=== PATIENT | female | born 1990 | race Caucasian/White ===

== ENCOUNTER → 2019-10-13 15:05 | Outpatient (BNVA) | payer BC, SELFPAY | PROVIDERS: Family Provider Electrodiagnostic Medicine; PCP Electrodiagnostic Medicine; Visit Provider Obstetrics & Gynecology | DX: Z01.89 Encounter for other specified special examinations (principal) | CPT/HCPCS: 84315 ==

== ENCOUNTER 2019-10-20 02:05 | Outpatient (CLI) | payer BC, SELFPAY ==
[2019-10-20 02:18] VITALS: BP 121/82; PULSE 101
[2019-10-20 02:36] VITALS: TEMP 36.6
[2019-10-20 02:37] VITALS: TEMP 36.6
== END 2019-10-20 02:56 | disposition home or self-care (01) ==
LOC: OPOB 02:09 → OBGYN 02:44 → OPOB 10-21 13:31
PROVIDERS: Family Provider Electrodiagnostic Medicine; PCP Electrodiagnostic Medicine; Visit Provider Obstetrics & Gynecology
DX: O42.90 Premature rupture of membranes, unspecified as to length of time between rupture and onset of labor, unspecified weeks of gestation (principal); Z3A.00 Weeks of gestation of pregnancy not specified
CPT/HCPCS: 59025; 99211

== ENCOUNTER 2019-10-26 18:22 | Outpatient (CLI) | payer BC, SELFPAY ==
[2019-10-26 18:37] VITALS: BP 130/86; PULSE 86
[2019-10-26 20:13] VITALS: TEMP 36.7
[2019-10-26 20:14] VITALS: BMI 39.1
[2019-10-26 21:22] VITALS: BP 146/92; PULSE 80
[2019-10-26 21:36] VITALS: TEMP 36.7
== END 2019-10-26 21:36 | disposition home or self-care (01) ==
LOC: OPOB 18:30 → OBGYN 21:30 → OPOB 10-27 13:11
PROVIDERS: Family Provider Electrodiagnostic Medicine; PCP Electrodiagnostic Medicine; Visit Provider Obstetrics & Gynecology
DX: O26.899 Other specified pregnancy related conditions, unspecified trimester (principal); Z3A.00 Weeks of gestation of pregnancy not specified; R10.9 Unspecified abdominal pain
CPT/HCPCS: 59025; 99211

== ENCOUNTER 2019-10-27 10:43 | Inpatient (IN) | payer BC, MEDICAID, SELFPAY ==
[2019-10-27] VITALS (105 sets, daily range): BP systolic 0–148; BP diastolic 0–101; PULSE 64–101; RESP 16–18; TEMP 36.4–36.9; O2SAT 97–100; BMI 39.1
[2019-10-27] MEDS: dextrose 5%-lactated ringers 1,000 ML 125 ML IV (11:16)
[2019-10-27] MEDS: ampicillin 2,000 MG in sodium chloride 0.9% (plus) 50 ML 100 MG IV (11:16)
[2019-10-27 11:39] LABS: Basophils % 0.3 %; Eosinophils # 0.1 10^3/uL (0.0-0.8); Eosinophils % 0.6 %; Hematocrit 35.1 % (37.0-47.0); Hemoglobin 10.8 g/dL (11.5-15.3); Lymphocytes # 1.8 10^3/uL (0.8-4.8); Lymphocytes % 19.4 %; Mean Corpuscular HGB Conc 30.8 g/dL (30.0-36.0); Mean Corpuscular Hemoglobin 22.8 pg (28.0-34.0); Mean Corpuscular Volume 74.1 fL (81-99); Mean Platelet Volume 10.4 fL (7.4-10.4); Monocytes # 0.7 10^3/uL (0.2-0.9); Neutrophils # 6.7 10^3/uL (1.8-7.7); Neutrophils % 72.2 %; Nucleated Red Blood Cells % 0 %; Platelet Count 350 10^3/cmm (130-400); Red Blood Count 4.74 10^6/uL (4.1-5.3); Red Cell Distribution Width 15.3 % (12.1-15.1); White Blood Count 9.3 10^3/uL (4.0-10.0)
[2019-10-27] MEDS: ampicillin 1,000 MG in sodium chloride 0.9% (plus) 50 ML 100 MG IV ×2 (15:12→19:06)
[2019-10-27] MEDS: lactated ringers 1,000 ML 999 ML IV ×2 (15:48→16:58)
[2019-10-27] MEDS: fentaNYL 50 mcg/mL INJ 2mL IV ×2 (15:49→16:58)
--- NOTE | 2019-10-27 16:18 | PC.NURSE ---
Dr Landon called for epidural placement at this time.
--- NOTE | 2019-10-27 16:28 | PC.NURSE ---
Eric Rufino, CERAMICS ENGINEER called for epidural placement
[2019-10-27] MEDS: alum-mag-hydroxide-sime 30 mL UDC PO (21:52)
[2019-10-28] VITALS (56 sets, daily range): BP systolic 0–141; BP diastolic 0–93; PULSE 67–124; RESP 16–18; TEMP 36.6–37.3; O2SAT 94–99
[2019-10-28] MEDS: dextrose 5%-lactated ringers 1,000 ML 125 ML IV ×3 (00:03→18:51)
[2019-10-28] MEDS: ampicillin 1,000 MG in sodium chloride 0.9% (plus) 50 ML 100 MG IV (00:04)
--- NOTE | 2019-10-28 06:33 | P.PN_ITS ---
Subjective Subjective: Interval history: Patient is a 29-year-old white female 1, para 0 with an LMP of 01/09/2019 and an EDC of 10/26/2019 based on a 9-week ultrasound, which places her at 40-2/7 weeks gestation today. She had presented to labor and delivery in the morning of 10/27/2019 due to contractions. She had been seen in the office earlier that morning and was found to be deonna regularly and was 5 cm dilated. She made slow progress through the day but eventually progressed to complete dilation and started pushing at approximately 03: 00 on 10/28. She has now been pushing for approximately 3 hours. Patient reports being exhausted and wanting to proceed to a section. Vitals/I&O/Wt Last Vital Signs Temp 98.2 F 10/27/19 21:08 Pulse 84 10/28/19 06:19 Resp 16 10/27/19 18:09 BP 137/77 10/28/19 06:19 Pulse Ox 100 10/27/19 17:51 10/27/19 10/27/19 10/28/19 14:59 22:59 06:59 Intake Total 120.833 / 422.843 9030.667 / 2562.500 687.5 / 3250.000 Balance 120.833 / 902.290 1809.667 / 2562.500 687.5 / 3250.000 Weight last 48 hrs Weight 221 lb Physical Exam : OTHER: - External genitalia: Very edematous. No lesions seen. Anus/perineum: Hemorrhoids present. Urethral meatus: Normal in size and location with no lesions or prolapse noted Urethra: Nontender with no palpable masses noted. Bladder: Nontender with no palpable masses noted. Vagina: No masses noted. Cervix: Completely dilated. Presenting bony structure of the head is at a +1 station. It extends down further. On exam, head feels to be wedged at the pelvic inlet. Urinary Catheter Management^: Chaudhary: Cath Placed During This Visit: no Data : 10/27/19 11:00 A&P Assessment and plan (1) Cephalopelvic disproportion: Patient has now been pushing for over 3 hours and is not brought the head below a +1 station. Significant It is present. On my personal exam, the head f eels to be wedged at the pelvic inlet. Based upon this, she is not a candidate for vacuum or forceps assisted delivery. As a result, I am recommending proceeding to a section. Specific risks of were discussed with the patient and her partner including bleeding to the point of needing a blood transfusion, infection, and injury to intra-abdominal organs including bowel, bladder, blood vessels, nerves, and ureters. Questions were answered. Patient wishes to go ahead and proceed with a section. Due to reported cephalosporin allergy, she will be receiving clindamycin and gentamicin for preoperative antibiotic prophylaxis. Status: Acute Code(s): O33.9 - Maternal care for disproportion, unspecified (2) Group B Streptococcus carrier, +RV culture, currently : Patient was GBS positive. She has been on ampicillin since admission for prophylaxis. Status: Acute Code(s): O99.820 - Streptococcus B carrier state complicating Attestations Medical Necessity Statement*: Patient presented in labor and is now proceeding to a section. Coding Level of Care Code Acute Account Solutions Analyst for Chg Fwd Diagnoses Cephalopelvic disproportion O33.9 Group B Streptococcus carrier, +RV culture, currently O99.820
[2019-10-28] MEDS: metoclopramide 5 mg/mL SDV 2 mL 10 MG IV (06:55)
[2019-10-28] MEDS: citric acid-sodium citrate 30 mL UDC PO (06:55)
[2019-10-28] MEDS: famotidine 20 mg/2 mL INJ IVP (06:55)
--- NOTE | 2019-10-28 07:04 | ANES.PREANES ---
Pre-Anesthetic Assessment Pre-Anesthetic Assessment: Height/Weight: Height 1.6 m Weight 100.244 kg Temp Pulse Resp BP Pulse Ox 98.2 F 98 16 133/77 100 10/27/19 21:08 10/28/19 07:01 10/27/19 18:09 10/28/19 07:01 10/27/19 17:51 Preop Diagnosis: failure to progress Proposed Procedure: Familial anesthetic complications: mom hard to wake up Social: Social History: No alcohol and No tobacco Exam: Pre-Anes Outpt Exam: alert, oriented x 3, clear to auscultation bilaterally and regular rate & rhythm Airway: Submandibular: WNL Cervical ROM: WNL MP: 2 Dentition: Full History/ROS: Other Pulmonary: Pulmonary: Asthma and SABA CV/HEM: CV/HEM: None reported : : None reported Hepatic: Hepatic: None reported GI: GI: GERD (controlled) Musc/skel: Musc/skel: None reported Neuropsych: Neuropsych: DAHL Anesthetic Plan: ASA status: III Anesthesia: Regional (specify below) Risk of > 500 ml blood loss (7ml/kg in children): Yes, adequate IV access and fluids planned Meds/Allergies Current Medications: Current Medications Generic Name Dose Route Start Last Admin Trade Name Freq PRN Reason Stop Dose Admin Al Hydrox/Mg [place] x/Simethicone 30 ml 10/27/19 10:48 10/27/19 21:52 Maalox PO 30 ml Q4H PRN Administration INDIGESTION Fentanyl 25 - 100 mcg 10/27/19 15:30 10/27/19 16:58 Sublimaze IV 50 mcg Q1H PRN Administration SEVERE PAIN Lactated Ringer's 1,000 mls @ 999 m ls/hr 10/27/19 10:48 10/27/19 18:00 Lactated Ringers IV Infused .Q1H1M PRN Infusion BLEEDING Ampicillin Sodium 2,000 mg/ 50 mls @ 100 mls/ hr 10/27/19 11:00 10/27/19 11:50 Sodium Chloride IV Infused ONCE WANDA Infusion Protocol Ampicillin Sodium 1,000 mg/ 50 mls @ 100 mls/ hr 10/27/19 15:00 10/28/19 00:04 Sodium Chloride IV 100 mls/hr Q4H WANDA Administration Protocol Dextrose/Lactated Ringer's 1,000 mls @ 125 m ls/hr 10/27/19 11:00 10/28/19 00:03 Dextrose 5%-Lact ated Ringers IV 125 mls/hr .Q8H WANDA Administration Ropivacaine 200 mg in 100 mls @ 13 mls/hr 10/27/19 11:00 10/28/19 01:45 Naropin Premix EPIDURAL 13 mls/hr .Q7H42M WANDA Administration PFSH Anesthesia PFSH: Social History Smoking and tobacco status: former smoker Quit status (tobacco): has quit using tobacco Second hand smoke exposure: No Smoking risk assessment/counseling performed?: No Alcohol intake: never Desire information about alcohol rehabilitation?: No Counseling given: No Desire information about substance/drug rehabilitation?: No Counseling given: No Last substance use date: 06/11/19 Adopted: No Caregiver/support person: No Lives independently: Yes Household members: spouse and family Housing: Apartment Marital status: Number of children: 0 Highest education level completed: High School Graduate service: No Current occupational status: employed 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 [employer] Current occupational exposures/hazards: No Pets and animals: No History of recent travel: No Leisure activites: exercise Current gender identity: Female Elsa/Anabaptist: None Special elsa needs: No Agree to transfusion: Yes Financial difficulty paying for basics: Not Very Hard Female Reproductive History: Date of last menstrual period: 01/09/19 : 1 Para: 0 Spontaneous abortions: No Data Anesthesia CBC & Chem 7: 10/27/19 11:00 Other Labs: Laboratory Results - last 48 hr 10/27/19 11:00 WBC 9.3 RBC 4.74 Hgb 10.8 L Hct 35.1 L MCV 74.1 L MCH 22.8 L MCHC 30.8 RDW 15.3 H Plt Count 350 MPV 10.4 Neut % (Auto) 72.2 Lymph % (Auto) 19.4 Bailey % (Auto) 7.0 Eos % (Auto) 0.6 Baso % (Auto) 0.3 Neut # (Auto) 6.7 Lymph # (Auto) 1.8 Bailey # (Auto) 0.7 Eos # (Auto) 0.1 Baso # (Auto) 0.0 Nucleated RBC % (auto) 0 Nucleated RBCs # 0.0 Cardiac Studies: No Data to Display
[2019-10-28] MEDS: methylergonovine 0.2 mg/mL INJ 1 mL IM (07:44)
--- NOTE | 2019-10-28 08:43 | ANE.PACU ---
 Inpatient post-anesthesia follow up: Airway intact: Yes Vital signs: Temperature 99.0 F Pulse Rate 98 Respiratory Rate 16 Blood Pressure 133/77 Pulse Oximetry 100 Oxygen Delivery Me thod Room Air Oxygen Flow Rate Fraction of Inspir ed Oxygen Hydration adequate: Yes Nausea and vomiting: No Pain level: 2 Mental status: Baseline
--- NOTE | 2019-10-28 08:53 | PM.OP ---
Operative Report Date of procedure: 10/28/19 Pre-op Diagnosis: Cephalopelvic disproportion, Arrest of descent, at 40-2/7 weeks gestation, GBS positive carrier status Post-op Diagnosis: 1. Cephalopelvic disproportion with contracted inlet, 2. Arrest of descent, 3. at 40-2/7 weeks gestation, 4. Group B strep positive carrier status in - delivered, 5. Viable female Procedure Done: Primary low transverse section Pathology: none sent Surgeon: Abdon Cobian Anesthesia: Epidural Brief History: Patient is a 29-year-old white female 1, para 0 with an LMP of 01/09/2019 and an EDC of 10/26/2019 based on a 9-week ultrasound, which placed her at 40-2/7 weeks gestation today. She had presented to labor and delivery and the morning of 10/27/2019 with contractions. She made slow change during the day and became uncomfortable enough that she had epidural placed. She eventually progressed to complete dilation and started pushing shortly after 3:00 in the morning. She pushed over 3 hours and never brought the baby below a +1 station. The head felt to be wedged tightly at the pelvic inlet and decision was made to proceed to a primary section. Patient had been on ampicillin for group B strep prophylaxis during the labor course due to positive GBS status. Procedure: Patient was taken to the operating room where epidural anesthesia was further dosed. She was given prophylactic dosing of clindamycin and gentamicin due to being cephalosporin allergic. She was prepped and draped in the usual sterile fashion in a dorsal supine position with a leftward tilt. Chaudhary catheter and sequential compression boots had been placed prior to starting the case. A Pfannenstiel skin incision was made with a knife and carried down to the underlying fascia with the knife. Fascia was incised in the midline with the knife and extended laterally with Simmons scissors. Superior aspect of the fascia was grasped with Shen clamps, elevated, and sharply and bluntly dissected. The inferior aspect of the fascia was grasped with Shen clamps, elevated, and sharply and bluntly dissected. The rectus muscles were in the midline. Peritoneum was sharply entered. Peritoneal incision was extended both superiorly and inferiorly with good visualization of the bladder. Bladder blade was inserted. The vesicouterine peritoneum was tented up and sharply entered. It was extended laterally and the bladder flap was created digitally. Bladder blade was reinserted. A transverse incision was made with the knife in the lower uterine segment. Clear fluid was obtained upon entry into the uterine cavity. The infant's head was wedged tightly at the pelvic inlet. With difficulty, the head was brought up out of the pelvis and delivered. One loop of loose nuchal cord was noted and reduced. The rest of the infant delivered atraumatically. Nose and mouth were suctioned with bulb suction. Cord was clamped and cut and the infant was handed off to the waiting nurses. Cord blood was obtained. Placenta was delivered via uterine massage. Patient received 20 units of Pitocin in the IV fluids. The uterus was exteriorized and cleared of clots and debris. She had bilateral inferior extensions from the corners of the uterine incision. The uterus was closed using 0 Vicryl suture in a running locking fashion. Care was taken not to incorporate bladder or ureters in the repair. During the closure, she continued to have significant enough bleeding from the uterus that she was given 1 dose of Methergine 0.2 mg IM. By the time the uterus was completely closed, uterus was deonna well and bleeding had slowed. The incision was imbricated using 0 Vicryl suture in a horizontal mattress fashion. The incision was inspected and noted to be hemostatic. Posterior cul-de-sac was thoroughly irrigated and cleared of clots and blood. The uterus was returned to the abdomen. The uterine incision was irrigated and noted to be hemostatic. The gutters were cleared of clots and blood. The rectus muscles and peritoneum were reapproximated in the midline using interrupted stitches of 2-0 Vicryl suture. The muscle layer was irrigated and noted to be hemostatic. The fascia was reapproximated using 0 Vicryl suture in a running fashion. The subcutaneous layer was irrigated and brought to hemostasis using electrocautery. It was reapproximated using 3-0 plain suture in an interrupted fashion. Skin was reapproximated using 4-0 Vicryl suture in a subcuticular fashion. Steri-Strips were applied. Patient tolerated the procedures well. Sponge, needle, and instrument counts were correct. ESTIMATED BLOOD LOSS: 1000 mL INTRAVENOUS FLUIDS: 1200 mL crystalloid DRAINS: Chaudhary catheter SPECIMENS: None COMPLICATIONS: None FINDINGS: 1. Viable, female infant, cephalic presentation, weighing 8 pounds 5 ounces (3780 g) with a length of 20-1/4 inches and Apgars of 8 at 1 minute and 8 at 5 minutes. 2. Normal appearing uterus, tubes, and ovaries. 3. Contracted pelvic inlet with head wedged tightly at the pelvic inlet. POSTOPERATIVE STATUS: The patient was left to recover in satisfactory condition
[2019-10-28] MEDS: sodium chloride 0.9% 500 ML 999 ML IV (14:20)
[2019-10-28] MEDS: ketorolac 30 mg/mL INJ IVP ×2 (14:21→20:25)
--- NOTE | 2019-10-28 15:29 | PC.NURSE ---
Eric Joy CRNA removed epidural catheter at this time.
[2019-10-28] MEDS: sodium chloride 0.9% 1,000 ML 999 ML IV (16:50)
[2019-10-28] MEDS: lanolin oint 7 gm 1 APPLIC TOPICAL (16:53)
[2019-10-28] MEDS: docusate sodium 100 mg Capsule PO (18:47)
[2019-10-28] MEDS: ferrous sulfate EC 325 mg Tablet PO (18:47)
[2019-10-28 23:10] LABS: Hematocrit 25.2 % (37.0-47.0); Hemoglobin 7.7 g/dL (11.5-15.3); Mean Corpuscular HGB Conc 30.6 g/dL (30.0-36.0); Mean Corpuscular Hemoglobin 23.1 pg (28.0-34.0); Mean Corpuscular Volume 75.7 fL (81-99); Mean Platelet Volume 10.4 fL (7.4-10.4); Platelet Count 232 10^3/cmm (130-400); Red Blood Count 3.33 10^6/uL (4.1-5.3); Red Cell Distribution Width 15.8 % (12.1-15.1)
[2019-10-29] MEDS: acetaminophen 325 mg Tablet 650 MG PO ×2 (00:20→18:47)
[2019-10-29 02:41] VITALS: BP 104/67; PULSE 71; RESP 16
[2019-10-29 03:00] VITALS: BP 104/67; PULSE 71; RESP 16; TEMP 36.7
[2019-10-29] MEDS: prenatal vitamin Capsule 1 CAP PO (10:06)
[2019-10-29] MEDS: ferrous sulfate EC 325 mg Tablet PO ×2 (10:06→18:44)
[2019-10-29] MEDS: docusate sodium 100 mg Capsule PO ×2 (10:06→18:44)
[2019-10-29 10:11] VITALS: BP 107/69; PULSE 96; RESP 16; TEMP 36.8; O2SAT 99
--- NOTE | 2019-10-29 13:45 | PM.PN ---
Subjective Subjective: Interval history: Denies any new problems or concerns. States pain is been well controlled with the Duramorph previously. Has taken Tylenol and ibuprofen now. Denies lightheadedness or dizziness with ambulation. Denies shortness of breath or chest pains. Reports tolerating a regular diet without nausea or vomiting. Denies problems with urination. Reports passing flatus. Reports bleeding has slowed. She is breast-feeding. Vitals/I&O/Wt Last Vital Signs Temp 98.2 F 10/29/19 10:11 Pulse 96 10/29/19 10:11 Resp 16 10/29/19 10:11 BP 107/69 10/29/19 10:11 Pulse Ox 99 10/29/19 10:11 10/28/19 10/29/19 10/29/19 22:59 06:59 14:59 Intake Total 1358.333 / 3220.333 500 / 3720.333 Output Total 940 / 2270 2100 / 4370 600 / 600 Balance 418.333 / 950.333 -1600 / -649.667 -600 / -600 Physical Exam Const: COMMON NORMALS: no apparent distress, average body habitus, alert and well nourished GENERAL APPEARANCE: well developed ORIENTATION/CONSCIOUSNESS: Yes oriented to person, Yes oriented to place and Yes oriented to time Resp: COMMON NORMALS: normal respiratory effort and clear to auscultation bilaterally AUSCULTATION: clear to auscultation bilaterally Cardio: COMMON NORMALS: regular rate, regular rhythm, no gallops, no murmurs and no rub RATE: regular rate RHYTHM: regular rhythm GI: COMMON NORMALS: soft to palpation, no hepatosplenomegaly and no masses (Except for firm uterus approximately 2 fingerbreadths below the umbilicus.) INSPECTION: Yes incision (Clean, dry, and intact with Steri-Strips present.) AUSCULTATION: Yes normoactive bowel sounds PALPATION: Yes soft, Yes tender (Mild in the lower abdomen.), Yes no hepatosplenomegaly and No hernia : EXTERNAL FEMALE EXAM: No hernia Extremity: OTHER: No calf pain bilaterally. 2+ lower extremity edema. Neuro: SENSORIUM/ORIENTATION: Yes alert, Yes oriented to person, Yes oriented to place and Yes oriented to time Psych: COMMON NORMALS: affect normal MOOD & AFFECT: Yes euthymic mood Urinary Catheter Management^: Chaudhary: Cath Placed During This Visit: no Data : 10/28/19 22:35 A&P Assessment and plan (1) Cephalopelvic disproportion: Postoperative day 1, status post primary section Patient is doing well overall. Her pain has been well controlled with Duramorph up to this point. Discussed with her the use of oral pain medications as needed as the Duramorph continues to wear off. Patient currently tolerating a regular diet after having diet advanced this morning. She initially had low urine output following surgery but responded well to fluid boluses and now has adequate urine production. Increase activities as tolerated. Status: Acute Qualifiers: Cephalopelvic disproportion type: inlet contraction of pelvis Qualified Code(s): O33.2 - Maternal care for disproportion due to inlet contraction of pelvis Code(s): O33.9 - Maternal care for disproportion, unspecified (2) Acute blood loss anemia: Patient is anemic with an H&H of 7.7/25.2. This is an acute drop from admission H&H of 10.8 and 35.1. Based upon blood loss at delivery this is an expected drop. She is currently asymptomatic. Plan is to have her take iron at home after discharge. Status: Acute Code(s): D62 - Acute posthemorrhagic anemia (3) Anemia during , delivered, current hospitalization: Patient was noted to have microcytic anemia on admission. She will be on iron after discharge from the hospital. Status: Acute Code(s): O99.02 - Anemia complicating childbirth Attestations Medical Necessity Statement*: Patient is day 1 following unscheduled section. She will be kept in the hospital until tomorrow with plan for discharge tomorrow. Coding Level of Care Code Acute Microfilming Document Preparer for [facility] Fwd Diagnoses Cephalopelvic disproportion O33.2 Cephalopelvic disproportion type: inlet contraction of pelvis Acute blood loss anemia D62 Anemia during , delivered, current hospitalization O99.02
[2019-10-29 16:00] VITALS: BP 116/79; PULSE 95; RESP 16; TEMP 36.8; O2SAT 98
[2019-10-29] MEDS: HYDROcodone-acetaminophen 5-325 mg Tablet PO (16:24)
[2019-10-29 22:00] VITALS: BP 112/72; PULSE 75; RESP 18; TEMP 36.5; O2SAT 97
[2019-10-30 04:35] VITALS: BP 123/86; PULSE 67; RESP 15; TEMP 36.6; O2SAT 100
[2019-10-30] MEDS: HYDROcodone-acetaminophen 5-325 mg Tablet PO (05:00)
--- NOTE | 2019-10-30 08:03 | P.DS_ITS ---
Discharge Providers Date of Admission: 10/27/19 10:43 Date of Discharge: 10/30/19 Attending Provider at Admission: Abdon Cobian Attending Provider at Discharge: Abdon Cobian Primary Care Provider: Markos Garcia DO Diagnoses at Discharge Discharge Diagnosis (1) Cephalopelvic disproportion: Status: Acute Qualifiers: Cephalopelvic disproportion type: inlet contraction of pelvis Qualified Code(s): O33.2 - Maternal care for disproportion due to inlet contraction of pelvis (2) Acute blood loss anemia: Status: Acute (3) Anemia during , delivered, current hospitalization: Status: Acute Reason for Visit Reason for Visit: Reason For Visit: LABOR Hospital Course Hospital Course: Patient is a 29-year-old white female 1, para 0 with an LMP of 01/09/2019 and an EDC of 10/26/2019 based on a 9-week ultrasound, which placed her at 40-1/7 weeks gestation at the time of admission. She presented to labor and delivery in the morning of 10/27/2019 with complaint of contractions. She had made slow change during the day and became more uncomfortable to the point that she had an epidural placed. She eventually progressed to complete dilation and started pushing shortly after 3 AM. She pushed for over 3 hours and never brought the baby below a +1 station. The head was felt to be wedged tightly at the pelvic inlet and decision was made to proceed to a primary section. She had a primary low transverse section performed with the delivery of a viable female infant weighing 8 lbs 5 oz (3780 g) with a length of 20-1/4 inches and Apgars of 8 at 1 minute and 8 at 5 minutes. The infant's head was noted to be wedged tightly at the pelvic inlet and she was felt to have a small pelvic inlet consistent with cephalopelvic disproportion. She received Duramorph through her epidural for pain management following section. On post operative day 1, patient was doing well overall. Her pain is been well controlled with Duramorph. She denied any lightheadedness or dizziness with ambulation. She denied any shortness of breath or chest pains. She was tolerating a regular diet without nausea or vomiting. She was urinating without difficulty. Her bleeding had decreased. She was afebrile with stable vital signs. Activities were increased through the day. She was also switched to oral pain medications. Patient had post operative anemia, but had been also anemic prior to admission. Since she was asymptomatic, no treatment was needed. She was to be started on iron tablets after discharge. On postoperative day 2, she was continuing to do well. She was tolerating a regular diet without nausea or vomiting. She denied any shortness of breath or chest pains. She was ambulating without lightheadedness or dizziness. She stated that her pain is been well controlled on oral medications. She denied any problems with urination. She was breast-feeding. She was requesting to be discharged home. PHYSICAL EXAM: See the exam below. PLAN Discharge to home. Discharge instructions discussed with patient. Patient was to follow-up in the office in 2 and 6 weeks following discharge. Physical Exam Const: COMMON NORMALS: no apparent distress, average body habitus, alert and well nourished GENERAL APPEARANCE: well developed ORIENTATION/CONSCIOUSNESS: Yes oriented to person, Yes oriented to place and Yes oriented to time Resp: COMMON NORMALS: normal respiratory effort and clear to auscultation bilaterally AUSCULTATION: clear to auscultation bilaterally Cardio: COMMON NORMALS: regular rate, regular rhythm, no gallops, no murmurs and no rub RATE: regular rate RHYTHM: regular rhythm GI: COMMON NORMALS: soft to palpation, no hepatosplenomegaly and no masses (Except for firm uterus, approximately 2 finger-breaths below umbilicus.) INSPECTION: Yes incision (clean, dry, intact with steri-strips present.) AUSCULTATION: Yes normoactive bowel sounds PALPATION: Yes soft, Yes tender (Mild tenderness of lower abdomen), Yes no hepatosplenomegaly and No hernia : EXTERNAL FEMALE EXAM: No hernia Neuro: SENSORIUM/ORIENTATION: Yes alert, Yes oriented to person, Yes oriented to place and Yes oriented to time Psych: COMMON NORMALS: affect normal MOOD & AFFECT: Yes euthymic mood Discharge Data Data Completed and [place]10/27/2019: CBC: WBC 9.3, hemoglobin 10.8, hematocrit 35.1, MCV 74.1, platelet 350,000 10/28/2019: CBC: WBC 13.0, hemoglobin 7.7, hematocrit 25.2, MCV 75.7, platelet 232,000 Vitals: Last Vital Signs Temp 97.8 F 10/30/19 04:35 Pulse 67 10/30/19 04:35 Resp 15 10/30/19 04:35 BP 123/86 10/30/19 04:35 Pulse Ox 100 10/30/19 04:35 Discharge Plan Discharge Patient Disposition: Home, Self-Care Condition: Stable Prescriptions: New ferrous sulfate 325 mg (65 mg iron) tablet 325 mg PO BID Qty: 60 RF: 1 ibuprofen 800 mg Tablet 800 mg PO TID Qty: 40 RF: 1 hydrocodone-acetaminophen 5-325 mg Tablet 1 - 2 tab PO Q6H PRN (Reason: Moderate To Severe Pain) Qty: 20 RF: 0 Continued docusate sodium 100 mg capsule 100 mg PO BID RF: 0 acetaminophen [Tylenol Extra Strength] 500 mg tablet 500 mg PO Q4H PRN (Reason: Abdominal Discomfort) RF: 0 famotidine [Pepcid] 20 mg tablet 20 mg PO ONCE RF: 0 prenat.vits,acacia,wze-gkgo-[id number] Tablet 1 tab PO ONCE RF: 0 Discharge Orders: Discharge Order (Routine); Ordered 10/30/19 Ordered By: Abdon Cobian Referrals: Abdon Cobian MD [Physician] - 11/13/19 10:45 am (2 weeks for post-op appointment 6 weeks for check-up- Is on 12.11.19 at 10:30am) Discharge Diet: Regular Discharge Activity: Limit activity as instructed Patient Instructions: , Section (DC), Your Baby (DC), and the Working Mom (DC), Expression, Collection and Storage of Breastmilk (DC), How to Hold and Breastfeed Your Baby (DC), and Plugged Ducts (DC), How to Increase Your Milk Supply (DC), How to Tell if Your Baby is Getting Enough Breast Milk (DC), Breast Care for the Breast Feeding Mother (GEN), Bleeding (DC), OB WHC, OB Discharge Report, OB Food/Drug Interaction Guide, OB Proud Parent Packet, Depression Activity Restrictions/Additional Instructions: Provide my section discharge instructions Discharge Date/Time: 10/30/19 13:20 Discharge Attestations Time Spent in Discharge Care*: less than 30 min Quality Metrics Clinical Quality Measures During this hospital stay, did patient experience: None Coding Level of Care Code Acute Oyster Fisherman for Chg Fwd Exam Problem Focused Diagnoses Cephalopelvic disproportion O33.2 Cephalopelvic disproportion type: inlet contraction of pelvis Acute blood loss anemia D62 Anemia during , delivered, current hospitalization O99.02
[2019-10-30] MEDS: prenatal vitamin Capsule 1 CAP PO (08:29)
[2019-10-30] MEDS: ferrous sulfate EC 325 mg Tablet PO (08:29)
[2019-10-30] MEDS: docusate sodium 100 mg Capsule PO (08:30)
[2019-10-30 10:00] VITALS: BP 121/71; PULSE 93; RESP 16; TEMP 36.4; O2SAT 98
[2019-10-30] MEDS: acetaminophen 325 mg Tablet 650 MG PO (11:31)
[2019-10-30 13:20] VITALS: BP 129/80; PULSE 77; RESP 16; TEMP 36.3; O2SAT 100
== END 2019-10-30 13:20 | disposition home or self-care (01) | DRG 787 ==
PROVIDERS: Admitting Provider Obstetrics & Gynecology; Family Provider Electrodiagnostic Medicine; PCP Electrodiagnostic Medicine; Visit Provider Obstetrics & Gynecology
PROC: 10D00Z1 Extraction of Products of Conception, Low, Open Approach (ICD-10-PCS; CPT 59514; principal; 2019-10-28 07:00)
DX: O65.8 Obstructed labor due to other maternal pelvic abnormalities (principal); D62 Acute posthemorrhagic anemia; Z3A.40 40 weeks gestation of pregnancy; Z37.0 Single live birth; O62.1 Secondary uterine inertia; O99.824 Streptococcus B carrier state complicating childbirth; O69.81X0 Labor and delivery complicated by cord around neck, without compression, not applicable or unspecified; O99.02 Anemia complicating childbirth
CPT/HCPCS: 12345; 36415; 51702; 59409; 81003; 85025; 85027; 86850; 86900; 96372; 96374; 96375; J0290; J1885; J2001; J2210; J2274; J2590; J2765; J2795; J3010; J3490; J7030; J7040

== ENCOUNTER 2022-01-14 05:00 | Inpatient (IN) | payer OTHER, MEDICAID, SELFPAY ==
[2022-01-14] VITALS (47 sets, daily range): BP systolic 93–116; BP diastolic 57–84; PULSE 50–134; RESP 14–46; TEMP 34.4–36.7; O2SAT 94–100; BMI 36.3
[2022-01-14] MEDS: lactated ringers 1,000 ML 999 ML IV (05:51)
[2022-01-14 05:55] LABS: Basophils # 0.1 10^3/uL (0.0-0.1); Basophils % 0.6 %; Eosinophils # 0.1 10^3/uL (0.0-0.8); Eosinophils % 0.7 %; Hematocrit 36.7 % (37.0-47.0); Hemoglobin 11.2 g/dL (11.5-15.3); Lymphocytes # 2.9 10^3/uL (0.8-4.8); Lymphocytes % 32.2 %; Mean Corpuscular HGB Conc 30.5 g/dL (30.0-36.0); Mean Corpuscular Volume 72.1 fl (81-99); Mean Platelet Volume 10.3 fL (7.4-10.4); Monocytes # 0.5 10^3/uL (0.2-0.9); Neutrophils # 5.47 10^3/uL (1.8-7.7); Neutrophils % 60.2 %; Nucleated Red Blood Cells % 0 %; Platelet Count 309 10^3/cmm (130-400); Red Blood Count 5.09 10^6/uL (4.1-5.3); Red Cell Distribution Width 15.9 % (12.1-15.1); White Blood Count 9.1 10^3/uL (4.0-10.0)
[2022-01-14 06:04] LABS: Amphetamines Screen Urine Negative (Negative); Barbiturates Screen Urine Negative (Negative); Benzodiazepines Screen Urine Negative (Negative); Cocaine Screen Urine Negative (Negative); Opiate Screen Urine Negative (Negative); PCP Screen Urine Negative (Negative); THC Screen Urine Positive (Negative)
[2022-01-14] MEDS: citric acid-sodium citrate 30 mL UDC PO (06:53)
[2022-01-14] MEDS: famotidine 20 mg/2 mL INJ IVP (06:53)
--- NOTE | 2022-01-14 06:53 | P.ANESUD_ITS ---
Pre-Anesthetic Update Pre-Anesthetic Assessment: Date of Surgery/Procedure: 01/14/22 Preop Trish gnosis: failure to progress Proposed Procedure: Operation Date: 01/14/22 07:00 Proposed Procedures p Section Repeat(Not Applicable) - Edward Peterson MD Any changes to Pre-Anesthetic Assessment?: No Last Intake: Intake Last Liquid Date 01/13/22 Last Liquid Time 19:00 Last Solid Date 01/13/22 Last Solid Time 19:00 Last Intake: 19:00 Labs Last 48hrs: Short CBC 01/14/22 Range/Units 05:30 WBC 9.1 (4.0-10.0) 10^3/ uL Hgb 11.2 L (11.5-15.3) g/dL Hct 36.7 L (37.0-47.0) % MCV 72.1 L (81-99) fl Plt Count 309 (130-400) 10^3/c mm Neut % (Auto) 60.2 % Neut # (Auto) 5.47 (1.8-7.7) 10^3/u L Vitals: Temperature 96.3 F L 01/14/22 05:42 Pulse Rate 74 01/14/22 06:50 Pulse Rhythm 01/14/22 05:53 Pulse Strength 3+ Normal 01/14/22 05:53 Respiratory Rate 16 01/14/22 05:21 Respiratory Effort Non-Labored 01/14/22 05:53 Respiratory Depth Normal 01/14/22 05:53 Respiratory Patter n 01/14/22 05:53 Blood Pressure 107/80 01/14/22 06:46 Pulse Oximetry 100 01/14/22 06:50 Oxygen Delivery Me thod 01/14/22 05:53 Exam: Pre-Anes Outpt Exam: alert, oriented x 3, clear to auscultation bilaterally and regular rate & rhythm Cardiac Studies: No Data to Display
[2022-01-14] MEDS: metoclopramide 5 mg/mL SDV 2 mL 10 MG IVP (06:54)
[2022-01-14] MEDS: lactated ringers 1,000 ML 125 ML IV (06:54)
--- NOTE | 2022-01-14 06:55 | PM.OBGYHP ---
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 The patient has had a relatively unremarkable . We have discussed the pros and cons of a versus a since he first trimester of the . The patient has made it clear that she would like to have a repeat section. Present Details : 2 Para: 1 Date of Last Menstrual Period: 01/09/19 Calculated Date of Delivery: 10/16/19 Gestational Age Based on Last Menstrual Period: 157 Labs Rubella: Immune RPR: Negative GBS: Positive Other Lab Information: Her blood type is O- she has been THC positive during her . She has been honest about her marijuana use. We have discussed concerns related to marijuana use. She has been in effort to minimize her marijuana use. She failed her 1 hour glucose screen. Otherwise her labs have been within normal limits. Review of Systems General: Reports: 10 or more systems reviewed and unremarkable except in HPI and below Const: Reports: fatigue; Denies: fever(s) Eyes: Denies: change in vision Card: Denies: chest pain Musc: Reports: back pain Enmanuel/Lymph: Denies: easy bruising Medications/Allergies Home Medications Medication Instructions Recorded Confirmed Last Taken Type famotidine 20 mg tablet 20 mg PO BID PRN 01/14/22 01/14/22 01/13/22 17:30 History ondansetron HCl 4 mg tablet 4 mg PO Q6H PRN 01/14/22 01/14/22 01/13/22 17:30 History Allergies Allergy/AdvReac Type Severity Reaction Status Date / Time hydrocodone Allergy Hives Verified 10/22/20 10:27 sulfamethoxazole Allergy ALGY-Hives Verified 01/14/22 05:36 [From Bactrim] trimethoprim [From Bactrim] Allergy ALGY-Hives Verified 01/14/22 05:36 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 No pertinent past medical history Denies diabetes, asthma, hypertension, seizures, DVT/PE PCP: Dr. Garcia Surgical History (Updated 01/14/22 @ 07:02 by Edward Peterson MD) History of section, low transverse (10/28/19) Primarly LTCS. Diagnosis: Cephalopelvic disproportion with contracted inlet, Arrest of descent. Performed by Dr. Cobian at [facility]. Status post hemorrhoidectomy 10/07/2019--deroofing and evacuation of thrombosed clots of external hemorrhoid performed by Dr. 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 Other Female Reproductive History: Hx Age of Menarche: 10 History History History 1 Term 1 Miscarriages/Ectopic 0 0 Living Children 1 Vitals/I&O/Wt Last Vital Signs Temp 96.3 F L 01/14/22 05:42 Pulse 74 01/14/22 06:50 Resp 16 01/14/22 05:21 BP 107/80 01/14/22 06:46 Pulse Ox 100 01/14/22 06:50 Weight last 48 hrs Weight 205 lb Physical Exam Const: COMMON NORMALS: patient oriented x3 and alert HENMT: COMMON NORMALS: moist oral mucous membranes HEAD & SCALP: normal to inspection Chest: COMMONS NORMALS: normal inspection of the chest Resp: COMMON NORMALS: clear to auscultation bilaterally AUSCULTATION: clear to auscultation bilaterally Cardio: COMMON NORMALS: regular rate and regular rhythm RATE: regular rate RHYTHM: regular rhythm GI: INSPECTION: Yes normal to inspection and Yes other (Gravid) Extremity: COMMON NORMALS: normal to inspection GENERAL: Yes edema (Trace) Neuro: COMMON NORMALS: patient oriented x3, moves all extremities and no sensory deficits noted SENSORIUM/ORIENTATION: Yes alert Psych: COMMON NORMALS: mental status grossly normal Skin: COMMON NORMALS: no rashes or lesions noted GENERAL SKIN EXAM: no rashes or lesions noted Data : 01/14/22 05:30 A&P Assessment and plan (1) 39 weeks gestation of : Proceed with low transverse section I discussed the risks of the procedure with the patient including the risk of bleeding, infection, and damage to intra-abdominal organs. We have also discussed the risks of a tubal including the risk of a ectopic , and a 1 and 200 chance of becoming again after a successful tubal ligation. Status: Acute (2) Sterilization: Status: Acute Attestations Medical Necessity Statement*: Routine and post care. Coding Level of Care Code Acute Content Publisher for Chg Fwd Diagnoses 39 weeks gestation of Z3A.39 Sterilization Z30.2
--- NOTE | 2022-01-14 08:21 | P.OP_ITS ---
Operative Report Date of procedure: January 14, 2022 Pre-op diagnosis: 1. 31-year-old female at 39 weeks estimated gestational age 2. History of 3. Multigravida desiring sterilization Post-op diagnosis: Same Procedure done: 1. Repeat lower transverse section with an intraoperative bilateral tubal ligation Specimens removed/disposition: 1. Male infant with a weight of 9 pounds 1 ounces and Apgars of 8 and 9 2. Bilateral fallopian tube segment with the right segment being tagged Pathology: Bilateral fallopian tube segments with the right segment being tagged. Surgeon: Edward Peterson Anesthesia: Other (Spinal) Estimated blood loss: 300 Procedure: The patient was brought back to the operating room where she was prepped and draped in usual sterile fashion. Anesthesia was found to be adequate. A lower transverse skin incision was then made with a #10 blade. I then dissected down to the underlying subcutaneous tissue until arriving at the prerectal fascia. The fascia was then nicked with the scalpel bilaterally. The fascial incisions were then carried laterally with Simmons scissors. Attention was then turned to the superior aspect of the incision which was grasped with kochers and tented up away from the underlying rectus abdominis muscles. The muscles were then dissected away from the fascia manually, and later with Simmons scissors. Attention was then turned to the inferior aspect of the incision, and the fascia was dissected away from the underlying muscle in similar fashion. The rectus abdominis muscles were then spread manually. The peritoneum was entered manually. Excellent visualization of the uterus was noted. A lower transverse uterine incision was then made with a #10 blade. Upon arriving at the intrauterine cavity, the uterine incision was then extended manually. The was noted to be in vertex position. I attempt to deliver baby without assistance. Despite several attempts, the baby's head did not deliver easily. I placed a Kiwi vacuum, and deliver the baby's head without difficulty. Total time of application was less than 20 seconds. After delivery of the head, the mouth and nose were suctioned at the site of the incision. There was no meconium. There was no nuchal cord. There was a body cord x1 the remainder of the body was then delivered and placed on the abdomen. The cord was cut and clamped. The baby was then handed to the waiting nurse. The placenta was removed intact. The uterus was externalized. The intrauterine cavity was cleansed of any remaining debris. The uterine incision was reapproximated in 2 layers. The first layer was performed with 0 Vicryl in a running locked stitch. The second layer was an imbricating stitch also using 0 Vicryl. The right fallopian tube was identified and followed through to the fimbria. It was then ligated cut and cauterized in a modified [place] fashion with 0 Vicryl. The left fallopian tube was also identified and ligated cut and cauterized in similar fashion. The uterus was replaced into the abdomen. The peritoneum was then irrigated with warm saline. I reexamined the uterine incision and found it to be hemostatic. The rectus abdominis muscles were then reapproximated using 0 Vicryl in a running stitch. The fascia was then reapproximated using 0 Vicryl in running stitch. The skin was reapproximated using ivelisse. A sterile dressing was placed. All counts were correct x2. Both the mother and baby were in stable condition.
[2022-01-14] MEDS: docusate sodium 100 mg Capsule PO ×2 (11:36→18:31)
[2022-01-14] MEDS: dextrose 5%-lactated ringers 1,000 ML 125 ML IV (11:37)
--- NOTE | 2022-01-14 13:34 | ANE.PACU2 ---
Inpatient post-anesthesia follow up: Airway intact: Yes Vital signs: Temperature 97.9 F Pulse Rate 56 Respiratory Rate 17 Blood Pressure 112/84 Pulse Oximetry 98 Oxygen Delivery Me thod Room Air Oxygen Flow Rate Fraction of Inspir ed Oxygen Hydration adequate: Yes Nausea and vomiting: No Pain level: 2 Mental status: Baseline
[2022-01-14] MEDS: ketorolac 30 mg/mL INJ IVP ×2 (15:54→21:57)
--- NOTE | 2022-01-14 16:48 | PC.NURSE ---
Patient has been up to the chair for over 2 hours watching TV and then went for a walk in the [place]. She made two laps in the hallway and tolerated it well. She is now back in her room sitting up in bed.
[2022-01-14] MEDS: ferrous sulfate EC 325 mg Tablet PO (18:31)
[2022-01-14 20:31] LABS: Hematocrit 29.9 % (37.0-47.0); Hemoglobin 9.1 g/dL (11.5-15.3); Mean Corpuscular HGB Conc 30.4 g/dL (30.0-36.0); Mean Corpuscular Hemoglobin 22.4 pg (28.0-34.0); Mean Corpuscular Volume 73.6 fl (81-99); Mean Platelet Volume 10.1 fL (7.4-10.4); Platelet Count 228 10^3/cmm (130-400); Red Blood Count 4.06 10^6/uL (4.1-5.3); White Blood Count 9.1 10^3/uL (4.0-10.0)
[2022-01-15] MEDS: alum-mag-hydroxide-sime 30 mL UDC PO (02:42)
[2022-01-15] MEDS: ketorolac 30 mg/mL INJ IVP (03:50)
[2022-01-15 03:55] VITALS: BP 103/67; PULSE 75; RESP 14; O2SAT 98
--- NOTE | 2022-01-15 07:37 | P.DS_ITS ---
Discharge Providers SENIOR SUPPORT ENGINEER Date of Admission: 01/14/22 05:00 Date of Discharge: 01/15/22 Attending Provider at Admission: Edward Peterson MD Attending Provider at Discharge: Edward Peterson MD Primary Care Provider: Markos Garcia DO Diagnoses at Discharge Discharge Diagnosis (1) 39 weeks gestation of : Status: Acute (2) Sterilization: Status: Acute Reason for Visit Reason for Visit: Repeat , desires sterilization Hospital Course Hospital Course The patient presented to the hospital for a repeat section and bilateral tubal ligation. The procedure was unremarkable. Her postoperative course was also unremarkable. Her bleeding was minimal. Her pain was well controlled. She breast-fed well. She was passing flatus on the day of surgery. Her diet was advanced and she has tolerated it well. She is required no pain medication. There have been no concerns. Information Peripartum Data: Infant Delivery Method: Physical Exam Narrative: She is in no acute distress Lungs are clear auscultation bilaterally Her heart has a regular rate and rhythm Her fundus is below the umbilicus and firm Her dressing is clean, dry and intact Her extremities have trace edema Urinary Catheter Management: Chaudhary: Cath Placed During This Visit: yes, but has since been removed by the nurse Reason for Continuing Indwelling Catheter: Decision to DC Catheter Urinary Catheter Date of Insertion: 01/14/22 Urinary Catheter Time of Insertion: 07:18 Date Urinary Catheter Removed: 01/14/22 Time Urinary Catheter Discontinued: 21:40 History History History 1 Term 1 Miscarriages/Ectopic 0 0 Living Children 1 Discharge Data Studies Completed and Pending Pending at discharge Category Date Time Status Complete Crossmatch Routine Lab 01/14/22 05:30 Results Rho D Immune Globulin Routine Lab 01/14/22 05:30 Results Type and Screen Routine Lab 01/14/22 05:30 Results Pathology: Surgical [PTH] Routine Pth 01/14/22 10:09 Received Laboratory Results WBC 9.1 10^3/uL (4.0-10.0) 01/14/22 20:20 RBC 4.06 10^6/uL (4.1-5.3) L 01/14/22 20:20 Hgb 9.1 g/dL (11.5-15.3) L 01/14/22 20:20 Hct 29.9 % (37.0-47.0) L 01/14/22 20:20 MCV 73.6 fl (81-99) L 01/14/22 20:20 MCH 22.4 pg (28.0-34.0) L 01/14/22 20:20 MCHC 30.4 g/dL (30.0-36.0) 01/14/22 20:20 RDW 16.0 % (12.1-15.1) H 01/14/22 20:20 Plt Count 228 10^3/cmm (130-400) 01/14/22 20:20 MPV 10.1 fL (7.4-10.4) 01/14/22 20:20 Neut % (Auto) 60.2 % 01/14/22 05:30 Lymph % (Auto) 32.2 % 01/14/22 05:30 Williams % (Auto) 6.0 % 01/14/22 05:30 Eos % (Auto) 0.7 % 01/14/22 05:30 Baso % (Auto) 0.6 % 01/14/22 05:30 Neut # (Auto) 5.47 10^3/uL (1.8-7.7) 01/14/22 05:30 Lymph # (Auto) 2.9 10^3/uL (0.8-4.8) 01/14/22 05:30 Williams # (Auto) 0.5 10^3/uL (0.2-0.9) 01/14/22 05:30 Eos # (Auto) 0.1 10^3/uL (0.0-0.8) 01/14/22 05:30 Baso # (Auto) 0.1 10^3/uL (0.0-0.1) 01/14/22 05:30 Nucleated RBC % (auto) 0 % 01/14/22 05:30 Nucleated RBCs # 0.0 /100WBC 01/14/22 05:30 Urine Opiates Screen Negative ng/mL (Negative) 01/14/22 05:30 Ur Barbiturates Screen Negative ng/mL (Negative) 01/14/22 05:30 Ur Phencyclidine Scrn Negative ng/mL (Negative) 01/14/22 05:30 Ur Amphetamines Screen Negative ng/mL (Negative) 01/14/22 05:30 U Benzodiazepines Scrn Negative ng/mL (Negative) 01/14/22 05:30 Urine Cocaine Screen Negative ng/mL (Negative) 01/14/22 05:30 U Marijuana (THC) Screen Positive ng/mL (Negative) H 01/14/22 05:30 Blood Type O Negative 01/14/22 05:30 Rho(D) Type Negative 01/14/22 05:30 Antibody Screen Negative 01/14/22 05:30 Screen Negative (Negative) 01/14/22 20:20 Vitals Last Vital Signs Temp 98.1 F 01/14/22 18:12 Pulse 75 01/15/22 03:55 Resp 14 01/15/22 03:55 BP 103/67 01/15/22 03:55 Pulse Ox 98 01/15/22 03:55 Discharge Plan Discharge Patient Disposition: Home Condition: Stable Prescriptions: New ibuprofen 800 mg Tablet 800 mg PO TID Qty: 45 0RF docusate sodium 100 mg Capsule 100 mg PO BID 7 Days Qty: 14 0RF Percocet 5-325 mg tablet 1 tab PO Q8H PRN (Reason: pain) Qty: 20 0RF Discontinued ondansetron HCl 4 mg tablet 4 mg PO Q6H PRN (Reason: Nausea) 0RF famotidine 20 mg tablet 20 mg PO BID PRN (Reason: Nausea) 0RF Discharge Orders: Discharge Order (Routine); Ordered 01/15/22 Ordered By: Edward Peterson Referrals: Edward Peterson MD [Physician] - 4-7 days (Please set up exam in 6 weeks) Discharge Diet: Usual diet Discharge Activity: Limit activity as instructed Patient Instructions: Depression (DC), Bleeding (DC), Preeclampsia and Eclampsia After Delivery (GEN), Tubal Ligation (DC), OB C- Section - Nicholas/Sierra, OB Discharge Report, OB Food/Drug Interaction Guide, Opioid Safety, OB Home Care Discharge Attestations SENIOR SUPPORT ENGINEER Time Spent in Discharge Care*: less than 30 min Coding Level of Care Code Acute Train Operator for Chg Fwd Diagnoses 39 weeks gestation of Z3A.39 Sterilization Z30.2
[2022-01-15 09:48] VITALS: RESP 18
[2022-01-15] MEDS: oxyCODONE-APAP 5-325 mg Tablet 1 TAB PO (09:48)
[2022-01-15 10:14] VITALS: BP 106/71; PULSE 90; RESP 18; TEMP 36.6; O2SAT 100
[2022-01-15 12:04] VITALS: BP 106/71; PULSE 90; RESP 18; TEMP 36.6; O2SAT 100
== END 2022-01-15 12:10 | disposition home or self-care (01) | DRG 785 ==
PROVIDERS: Admitting Provider Family Medicine; PCP Electrodiagnostic Medicine; Visit Provider Family Medicine
PROC: 10D00Z1 Extraction of Products of Conception, Low, Open Approach (ICD-10-PCS; CPT 59514; principal; 2022-01-14 07:00)
DX: O34.211 Maternal care for low transverse scar from previous cesarean delivery (principal); N85.8 Other specified noninflammatory disorders of uterus; O99.820 Streptococcus B carrier state complicating pregnancy; O99.320 Drug use complicating pregnancy, unspecified trimester; F12.90 Cannabis use, unspecified, uncomplicated; Z3A.39 39 weeks gestation of pregnancy; Z37.0 Single live birth; Z30.2 Encounter for sterilization
CPT/HCPCS: 12345; 36415; 36430; 51702; 59025; 80306; 85025; 85027; 85460; 86850; 86900; 88302; 90384; J0690; J1885; J2274; J2405; J2765; J3490

== ENCOUNTER → 2023-03-30 14:37 | Outpatient (BNVA) | payer OTHER, MEDICAID, SELFPAY | PROVIDERS: PCP Electrodiagnostic Medicine; Visit Provider Nurse Practitioner Family | DX: Z01.89 Encounter for other specified special examinations (principal) | CPT/HCPCS: 73110 ==

== ENCOUNTER 2023-10-26 19:19 | Emergency (ER) | payer OTHER, MEDICAID, SELFPAY ==
[2023-10-26 19:23] VITALS: BP 121/85; PULSE 73; RESP 16; TEMP 36.5; O2SAT 99
--- NOTE | 2023-10-26 19:26 | XRR_ITS ---
PROCEDURE INFORMATION: Exam: XR Right Hand Exam date and time: 10/26/2023 7:48 PM Age: 33 years old Clinical indication: Injury or trauma; Other: Dog bite; Hand; Right TECHNIQUE: Imaging protocol: Radiologic exam of the right hand. Views: 3 or more views. COMPARISON: No relevant prior studies available. FINDINGS: Bones/joints: Normal. No acute fractures or dislocations. Soft tissues: No radiopaque foreign bodies. XR/XR hand RT min 3V* [id number] IMPRESSION: Normal.
--- NOTE | 2023-10-26 20:34 | ED_ITS ---
HPI - Animal Bite 2 General: Chief Complaint: Animal Bite Stated Complaint: Rt Hand Injury Time Seen by Provider: 10/26/23 19:30 Source: patient Mode of arrival: ambulatory Limitations: no limitations History of Present Illness: Patient presents emergency department today for evaluation treatment of injury sustained to her right wrist. Patient states that she has a great Jesse/retriever mixed 6-month-old puppy at home. She states that it got one of his toes caught in the middle back door frame and began crying out. Patient states when she went to go try and calm/steady the dog, the dog bit her on her right wrist. The dog is an inside dog but has not been immunized yet. Patient's last tetanus immunization was 2 years ago. Review of Systems 2 General: Reports: 10 or more systems reviewed and unremarkable except in HPI and below PFSH ED 2 PFSH: Medical History No pertinent past medical history Denies diabetes, asthma, hypertension, seizures, DVT/PE PCP: Dr. Garcia Migraine headache without aura Has used propranolol in the past but did not like the way it made her feel. Surgical History Status post hemorrhoidectomy 10/07/2019--deroofing and evacuation of thrombosed clots of external hemorrhoid performed by Dr. Gillis at [facility] when patient was about 35 weeks History of section, low transverse (10/28/19) Primarly LTCS. Diagnosis: Cephalopelvic disproportion with contracted inlet, Arrest of descent. Performed by Dr. Cobian at [facility]. 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 Do you think of yourself as: Straight/Heterosexual Female Reproductive History: Para: 0 Spontaneous abortions: No Physical Exam 2 Const: COMMON NORMALS: no acute distress, patient oriented x3 and alert HENMT: COMMON NORMALS: normocephalic, atraumatic and hearing grossly normal bilaterally HEAD & SCALP: normocephalic and atraumatic Eye: COMMON NORMALS: Equal, round and reactive pupils present, EOMs intact bilaterally and conjunctivae normal CONJUNCTIVA: Yes conjunctivae normal P UPIL: Yes Equal, round and reactive pupils present Neck/C-Spine: COMMON NORMALS: full ROM and no JVD Lymph: LYMPHATIC: no lymphadenopathy noted Resp: COMMON NORMALS: normal respiratory effort, No retractions and No use of accessory muscles Cardio: COMMON NORMALS: no JVD and regular rate RATE: regular rate Extremity: NARRATIVE EXTREMITY EXAM: Patient has generalized swelling of the right wrist. She has 4 obvious puncture denson around her wrist without active bleeding. No signs of lacerations or abrasions. EXTREMITY IMAGE (FRONT): 1. 4 punctures-1. posterior medial distal wrist puncture 2. posterior medial proximal wrist puncture 3. anterior lateral distal wrist puncture 4. anterior lateral proximal wrist puncture Neuro: COMMON NORMALS: patient oriented x3 SENSORIUM/ORIENTATION: Yes alert Psych: COMMON NORMALS: mental status grossly normal, Normal thought process present, cooperative and normal affect THOUGHT PROCESS: Normal thought process present Skin: COMMON NORMALS: no rashes or lesions noted and turgor normal GENERAL SKIN EXAM: no rashes or lesions noted and turgor normal Course 2 Vital Signs: Vital signs: Vital Signs Temperature 97.7 F 10/26/23 19:23 Pulse Rate 73 10/26/23 19:23 Respiratory Rate 16 10/26/23 19:23 Blood Pressure 121/85 10/26/23 19:23 Pulse Oximetry 99 10/26/23 19:23 Oxygen Delivery Me thod Room Air 10/26/23 19:23 MDM - Animal Bite Medical Decision Making X-rays negative for any signs of underlying bony injury however, patient does have obvious puncture denson around her wrist with diffuse swelling. Patient is tender and sore. Wonder if she may be more tender and sore over the next couple of days. Patient's wounds were cleaned here in the emergency department and a first round of Augmentin was provided. Patient was given a prescription to continue Augmentin starting in the morning and was instructed to take in its entirety. She was given wound care instructions for twice a day wound cleaning and bandaging. Patient has an updated tetanus immunization per her report. She is to continue monitoring the dog for the next 2 weeks for any concerning signs of rabies the likelihood is extremely low. Patient should have a wound check if needed for any concerns of worsening swelling, redness, or draining of thick green or yellow material consistent with developed section. Patient verbalizes understanding and agreement to treatment plan. Differential Diagnosis Likely bite by animal and dog bite; Unlikely cat bite or rabies contact Lab Data Radiology Impressions Hand X-Ray 10/26/23 19:26 IMPRESSION: Normal. All radiology interpretation(s) finalized by discharge Discharge Plan Discharge Patient Disposition: Home Clinical Impression: Puncture wound of right wrist, Dog bite Condition: Stable Prescriptions: New amoxicillin-pot clavulanate 875-125 mg tablet 1 tab PO BID 10 Days Qty: 20 0RF Discharge Orders: Discharge ED (Routine); Ordered 10/26/23 Ordered By: Cassia Chavarria Referrals: Markos Garcia DO [Primary Care Provider] - Discharge Diet: Usual diet Discharge Activity: Increase activity as tolerated Patient Instructions: Animal Bite (ED), Puncture Wound (DC), Rabies (ED) Activity Restrictions/Additional Instructions: X-ray shows no signs of any bony injury however, you may be extremely tender, sore, swollen, and bruised for several days. We recommend washing your wounds twice a day with warm water and mild soap. We recommend keeping it bandaged and wrapped with an Darius wrap for comfort and cleanliness during this time. We are providing you an antibiotic called Augmentin which helps cover for the specific bacteria found in the mouths of dogs. However, if you feel the area becomes more red, swollen, or begins draining a thick yellow or green material from the wound you need to be seen and reevaluated. While the likelihood of your puppy having rabies is extremely low, we do recommend monitoring the animal over the next 2 weeks. I have included an informational handout about rabies for you to use as reference at home. If you have any concerns you need to notify your loan servicing officer or animal control and you should return here to the ER. Coding Level of Care Code ED Supervisor [employer] for Mat Guzman
[2023-10-26] MEDS: amoxicillin-clav 875-125 mg Tablet 1 TAB PO (20:51)
--- NOTE | 2023-10-26 20:55 | PC.NURSE ---
wound cleaned with betadine and sterile water. Gauze used to wipe the site. Darius wrap applied to wrist per provider.
[2023-10-26 20:58] VITALS: PULSE 87; RESP 16
== END 2023-10-26 20:58 | disposition home or self-care (01) ==
PROVIDERS: Emergency Provider Physician Assistant; PCP Electrodiagnostic Medicine
DX: S61.551A Open bite of right wrist, initial encounter (principal); W54.0XXA Bitten by dog, initial encounter; Z87.891 Personal history of nicotine dependence
CPT/HCPCS: 73130; 99283

== ENCOUNTER 2024-12-12 06:51 | Emergency (ER) | payer OTHER, SELFPAY ==
[2024-12-12] VITALS (10 sets, daily range): BP systolic 104–117; BP diastolic 69–77; PULSE 70–88; RESP 18–20; TEMP 36.7; O2SAT 74–100
[2024-12-12 07:43] LABS: Basophils % 0.6 %; Eosinophils # 0.1 10^3/uL (0.0-0.8); Eosinophils % 1.5 %; Hematocrit 45.4 % (36-47); Lymphocytes # 1.4 10^3/uL (0.8-4.8); Lymphocytes % 18.6 %; Mean Corpuscular HGB Conc 31.9 g/dL (30-55); Mean Corpuscular Hemoglobin 25.3 pg (27-33); Mean Corpuscular Volume 79.2 fl (85-98); Mean Platelet Volume 10.6 fL (7.4-10.4); Monocytes # 0.4 10^3/uL (0.2-0.9); Monocytes % 5.5 %; Neutrophils # 5.36 10^3/uL (1.8-7.7); Neutrophils % 73.7 %; Nucleated Red Blood Cells % 0 %; Platelet Count 288 10^3/cmm (157-399); Red Blood Count 5.73 10^6/uL (3.85-5.65); Red Cell Distribution Width 14.4 % (12.1-15.1); White Blood Count 7.27 10^3/uL (3.29-11.43)
[2024-12-12 07:52] LABS: HCG, Serum Qual Negative (Negative)
[2024-12-12 08:00] LABS: Alanine Aminotransferase 15 U/L (0-33); Albumin Level 4.3 g/dL (3.5-5.2); Alkaline Phosphatase 94 U/L (35-105); Anion Gap 12.7 (5-19); Aspartate Amino Transferase 18 U/L (0-32); Blood Urea Nitrogen 10 mg/dL (6-20); Calcium 9.6 mg/dL (8.5-10.5); Carbon Dioxide 22 mmol/L (22-29); Chloride 106 mmol/L (98-107); Creatinine Clr Calc Pharmacy 117.2009; Globulin 2.4 g/dL (1.3-4.6); Glomerular Filtration Rate 94.7 mL/min (90-130); Glucose 95 mg/dL (65-115); Lipase 22 U/L (13-60); Osmolality Calculated 283 mOsm/kg (285-295); Potassium 3.7 mmol/L (3.5-5.1); Sodium 137 mmol/L (136-145); Total Bilirubin 0.5 mg/dL (0.15-1.2); Total Protein 6.7 g/dL (6.6-8.7)
--- NOTE | 2024-12-12 08:26 | W.ED.ABDPA2 ---
HPI - Abdominal Pain General: Chief Complaint: Abdominal Pain Stated Complaint: abd pain Time Seen by Provider: 12/12/24 06:56 History of Present Illness: 34-year-old female presents emergency room complaining of right upper quadrant abdominal pain. Worsens takes a deep breath. Severe pain with palpation. She has noticed less intense episodes in the past when she eats beef. She denies any acholic stools she has been very nauseous. No dysuria urgency or frequency she is currently having her period. Patient does use marijuana regularly she uses edibles every day as well as vaping. She has not had any vomiting with this. Associated Symptoms: Reports nausea; Denies chills, dysuria and fever(s) Related Data Home Medications ?Medication ?Instructions ?Recorded ?Confirmed Marijuana Gummies 15 mg PO DAILY 12/12/24 12/12/24 multivitamin 1 tab PO QAM 12/12/24 12/12/24 naproxen sodium 220 mg tablet 220 mg PO BID PRN Pain 12/12/24 12/12/24 (Aleve) Previous Rx's ?Medication ?Instructions ?Recorded amoxicillin 500 mg-potassium 1 tab PO TID #21 tabs 12/12/24 clavulanate 125 mg tablet (Augmentin) hydrocodone 5 mg-acetaminophen 325 1 tab PO Q6H PRN pain #25 tabs 12/12/24 mg tablet promethazine 25 mg tablet 25 mg PO Q6H PRN nausea and 12/12/24 vomiting #20 tabs Allergies Allergy/AdvReac Type Severity Reaction Status Date / Time hydrocodone Allergy Hives Verified 09/08/24 09:40 sulfamethoxazole (From Allergy ALGY-Hives Verified 09/08/24 09:40 Bactrim) trimethoprim (From Bactrim) Allergy ALGY-Hives Verified 09/08/24 09:40 Review of Systems Const: Denies: fever(s) or chills Card: Denies: chest pain Resp: Denies: dyspnea GI: Reports: abdominal pain (Right upper quadrant) and nausea : Denies: dysuria, urinary frequency or urinary urgency Musc: Denies: neck pain or back pain Skin/Breast: Denies: rash PFSH ED PFSH: Medical History No pertinent past medical history Denies diabetes, asthma, hypertension, seizures, DVT/PE PCP: Dr. Garcia Migraine headache without aura Has used propranolol in the past but did not like the way it made her feel. Surgical History Status post hemorrhoidectomy 10/07/2019--deroofing and evacuation of thrombosed clots of external hemorrhoid [place] Gillis [place] [facility] [place] patient was about 35 weeks History of section, low transverse (10/28/19) [facility]. Diagnosis: Cephalopelvic disproportion with contracted inlet, Arrest of descent. Performed by Dr. Cobian at [facility] [place]. Family History Grandmother Diabetes Maternal Breast cancer Paternal, diagnosed in her 70s Mother Diabetes Hyperlipidemia Hypertension Anesthesia complication Family/Other Breast cancer Paternal great aunt, diagnosed in her 70s Denies family history of Colon cancer Ovarian cancer Heart disease Uterine cancer Thyroid disease Stroke Social History (Updated 12/12/24 @ 08:34 by Prince Benson DO) Smoking and tobacco/nicotine status: unknown if used tobacco/nicotine Quit status (tobacco/nicotine): has quit using Alcohol intake: never Substance/Drug Use: current Substance/Drug use frequency: daily Other substance/drug use details: Multiple doses of edibles and vaping daily 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 Do you think of yourself as: Straight/Heterosexual Female Reproductive History: Para: 0 Spontaneous abortions: No Physical Exam Const: COMMON NORMALS: no acute distress GENERAL APPEARANCE: cooperative and comfortable ORIENTATION/CONSCIOUSNESS: Yes awake, Yes oriented to person, Yes oriented to place and Yes oriented to time HENMT: COMMON NORMALS: normocephalic, atraumatic and hearing grossly normal bilaterally HEAD & SCALP: normocephalic and atraumatic Resp: COMMON NORMALS: normal respiratory effort, No retractions, No use of accessory muscles and clear to auscultation bilaterally AUSCULTATION: clear to auscultation bilaterally Cardio: COMMON NORMALS: regular rate, regular rhythm and No murmurs present (Cardio) RATE: regular rate RHYTHM: regular rhythm GI: COMMON NORMALS: No hepatosplenomegaly present AUSCULTATION: Yes normoactive bowel sounds PALPATION: Yes Tenderness to palpation present (GI) Details: RUQ, No Guarding due to palpation present (GI) and Yes No hepatosplenomegaly present Extremity: COMMON NORMALS: normal to inspection, capillary refill normal, no clubbing, cyanosis or edema, no calf tenderness and no pedal edema Neuro: SENSORIUM/ORIENTATION: Yes oriented to person, Yes oriented to place and Yes oriented to time Skin: COMMON NORMALS: no rashes or lesions noted GENERAL SKIN EXAM: no rashes or lesions noted Course Vital Signs: Vital signs: Vital Signs Temperature 98.1 F 12/12/24 06:58 Pulse Rate 88 12/12/24 11:55 Respiratory Rate 18 12/12/24 09:23 Blood Pressure 104/76 12/12/24 11:55 Pulse Oximetry 100 12/12/24 11:55 MDM - Abdominal Pain Medical Decision Making Cholelithiasis without evidence of acute cholecystitis patient does have biliary colic suspect at some point she will need to have her gallbladder out. Reviewed dietary restrictions that are likely to aggravate this. Will get her set up with surgery as an outpatient. Return if she has worsening symptoms Lab Data 12/12/24 07:27 12/12/24 07:27 Labs/Radiology: Radiology Impressions Abdomen/Pelvis CT 12/12/24 08:35 IMPRESSION: 1. Cholelithiasis without evidence for acute cholecystitis or biliary dilatation. Numerous stones are present in the gallbladder. 2. No renal obstruction or perinephric stranding. 3. Normal appendix. 4. Moderate fecal retention in the RIGHT colon. Gallbladder Ultrasound 12/12/24 08:35 IMPRESSION: 1. Cholelithiasis. Numerous stones within the gallbladder. Stones are present within the neck of the gallbladder. These could be entrapped. Recommend surgical evaluation for cholecystectomy. 2. No pericholecystic fluid. 3. Normal common bile duct. Laboratory Results WBC 7.27 10^3/uL (3.29-11.43) 12/12/24 07:27 RBC 5.73 10^6/uL (3.85-5.65) H 12/12/24 07:27 Hgb 14.50 g/dL (11.27-16.99) 12/12/24 07:27 Hct 45.4 % (36-47) 12/12/24 07:27 MCV 79.2 fl (85-98) L 12/12/24 07: MCH 25.3 pg (27-33) L 12/12/24 07: MCHC 31.9 g/dL (30-55) 12/12/24 07: RDW 14.4 % (12.1-15.1) 12/12/24 07:27 Plt Count 288 10^3/cmm (157-399) 12/12/24 07: MPV 10.6 fL (7.4-10.4) H 12/12/24 07:27 Neut % (Auto) 73.7 % 12/12/24 07:27 Lymph % (Auto) 18.6 % 12/12/24 07:27 [place] % (Auto) 5.5 % 12/12/24 07: Eos % (Auto) 1.5 % 12/12/24 07:27 Baso % (Auto) 0.6 % 12/12/24 07:27 Neut # (Auto) 5.36 10^3/uL (1.8-7.7) 12/12/24 07:27 Lymph # (Auto) 1.4 10^3/uL (0.8-4.8) 12/12/24 07:27 [place] # (Auto) 0.4 10^3/uL (0.2-0.9) 12/12/24 07:27 Eos # (Auto) 0.1 10^3/uL (0.0-0.8) 12/12/24 07:27 Baso # (Auto) 0.0 10^3/uL (0.0-0.1) 12/12/24 07:27 Nucleated RBC % (auto) 0 % 12/12/24 07: Nucleated RBCs # 0.0 /100WBC 12/12/24 07:27 Sodium 137 mmol/L (136-145) 12/12/24 07:27 Potassium 3.7 mmol/L (3.5-5.1) 12/12/24 07:27 Chloride 106 mmol/L (98-107) 12/12/24 07:27 Carbon Dioxide 22 mmol/L (22-29) 12/12/24 07:27 Anion Gap 12.7 (5-19) 12/12/24 07:27 BUN 10 mg/dL (6-20) 12/12/24 07: Creatinine 0.7 mg/dL (0.5-0.9) 12/12/24 07: GFR Calculation 94.7 mL/min (90-130) 12/12/24 07: Glucose 95 mg/dL (65-115) 12/12/24 07:27 Calculated Osmolality 283 mOsm/kg (285-295) L 12/12/24 07: Calcium 9.6 mg/dL (8.5-10.5) 12/12/24 07: Total Bilirubin 0.5 mg/dL (0.15-1.2) 12/12/24 07: AST 18 U/L (0-32) 12/12/24 07: ALT 15 U/L (0-33) 12/12/24 07: Alkaline Phosphatase 94 U/L (35-105) 12/12/24 07:27 Total Protein 6.7 g/dL (6.6-8.7) 12/12/24 07: Albumin 4.3 g/dL (3.5-5.2) 12/12/24 07: Globulin 2.4 g/dL (1.3-4.6) 12/12/24 07: Lipase 22 U/L (13-60) 12/12/24 07: HCG, Qual Negative (Negative) 12/12/24 07: Urine Color Yellow (Yellow) 12/12/24 09:25 Urine Appearance Clear (CLEAR) 12/12/24 09: Urine pH 8.0 (5-7) A 12/12/24 09:25 Ur Specific [place] 1.008 (1.005-1.030) 12/12/24 09:25 Urine Protein Negative (Negative) 12/12/24 09:25 Urine Glucose (UA) Negative (Normal) 12/12/24 09: Urine Ketones Negative (Negative) 12/12/24 09: Urine Blood 2+ (Negative) A 12/12/24 09: Urine Nitrate Negative (Negative) 12/12/24 09:25 Urine Bilirubin Negative (Negative) 12/12/24 09:25 Urine Urobilinogen 0.2 mg/dL (Negative) 12/12/24 09:25 Ur Leukocyte Esterase Negative (Negative) 12/12/24 09:25 Urine RBC 0-4 /hpf (0-2) H 12/12/24 09:25 Urine WBC 0-4 /hpf (0-5) H 12/12/24 09:25 Ur Squamous Epith Cells 5-10 /hpf (0-5) H 12/12/24 09:25 Ur Transition Epith Cell 0-4 /hpf 12/12/24 09:25 Amorphous Sediment Not Reportable 12/12/24 09:25 Urine Bacteria None /hpf (NONE) 12/12/24 09:25 Other Casts Epithelial /lpf 12/12/24 09:25 All radiology interpretation(s) finalized by discharge Discharge Plan Discharge Patient Disposition: Home Clinical Impression: Cholelithiasis, Biliary colic Condition: Stable Prescriptions: New promethazine 25 mg tablet 25 mg PO Q6H PRN (Reason: nausea and vomiting) Qty: 20 0RF amoxicillin-pot clavulanate [Augmentin] 500-125 mg tablet 1 tab PO TID Qty: 21 0RF hydrocodone-acetaminophen 5-325 mg tablet 1 tab PO Q6H PRN (Reason: pain) Qty: 25 0RF No Action multivitamin Tablet 1 tab PO QAM naproxen sodium [Aleve] 220 mg Tablet 220 mg PO BID PRN (Reason: Pain) Marijuana Gummies 15 mg PO DAILY Discharge Orders: Discharge ED (Routine); Ordered 12/12/24 Ordered By: Prince Benson Discharge Diet: As Directed Discharge Activity: Increase activity as tolerated Patient Instructions: Biliary Colic (ED), Gallstones (ED), Abdominal Pain (ED), Opioid Safety, Pain Management Activity Restrictions/Additional Instructions: Thank you for choosing [facility] for your healthcare needs today. It is very important that you follow up as instructed or that you return to the Emergency Department should you have concerns or if your condition changes or worsens in any way. You were seen in the emergency room with right upper quadrant abdominal pain. You have cholelithiasis (gallstones) but does not get acutely infected. At this time you do not need your gallbladder emergently removed however it will need to be removed at some point in future. Recommend they be very careful with what to eat fatty foods red meats dairy products citrus foods tomato-based products can all aggravate the gallbladder you should avoid these very strictly. We have given you pain medications and antinausea medicines to use as needed. Additionally we will make arrangements for you to follow-up with one of the general surgeons. You can use hydrocodone for pain. Recommend you take either cetirizine or diphenhydramine to limit side effects of skin itching. Print Language: Guyanese Coding Level of Care Code ED Senior Resident Care Director for Mat Guzman
--- NOTE | 2024-12-12 08:35 | US_ITS ---
WS: [id number] RIGHT UPPER QUADRANT ULTRASOUND HISTORY: biliary colic COMPARISON: None available. Liver: 16.1 cm in length. Normal size liver and echogenicity. No bile duct dilatation or mass. Portal Vein: Normal hepatopetal flow with monophasic waveform. Gallbladder: Normally distended gallbladder. Numerous stones are present within the gallbladder. No pericholecystic fluid. Stones are noted within the neck of the gallbladder. CBD: 0.4 cm Pancreas: Limited visualization. Right kidney: 11.3 cm in length. Normal size and echogenicity. No hydronephrosis or mass. Aorta and IVC: Unremarkable abdominal aorta and IVC. No ascites. US/US gall bladder [id number] IMPRESSION: 1. Cholelithiasis. Numerous stones within the gallbladder. Stones are present within the neck of the gallbladder. These could be entrapped. Recommend surgica l evaluation for cholecystectomy. 2. No pericholecystic fluid. 3. Normal common bile duct.
--- NOTE | 2024-12-12 08:35 | CT_ITS ---
WS: [id number] CT ABDOMEN AND PELVIS NONCONTRAST HISTORY: flank pain, right-sided back and flank pain. TECHNIQUE: Imaging performed through the abdomen and pelvis. Coronal and sagittal reformats are submitted. All CT scans at [facility] use at least one of these dose optimization techniques: automated exposure control; mA and/or kV adjustment per patient size (includes targeted exams where dose is matched to clinical indication); or iterative reconstruction. DLP: 587.82 mGy.cm COMPARISON: None available. Lower thorax: Lung bases are clear. Visualized heart is normal. No hiatal hernia. Liver: Normal size liver. No mass or bile duct dilatation. Gallbladder: Gallbladder is well distended. Numerous stones are present within the gallbladder. No pericholecystic fluid or gallbladder wall thickening. Common bile duct is normal size. Pancreas: Normal size and attenuation. Normal pancreatic duct. No pancreatitis or mass. Spleen: Normal. Adrenal glands: Normal. No mass. Right kidney: Normal size kidney. No significant perinephric stranding. Small extrarenal pelvis. Ureter tapers quickly and there is no distal ureteral calcification or stone. Left kidney: Slightly lobulated LEFT kidney. Kidney is slightly smaller than the RIGHT. No perinephric stranding. Nonobstructing 2 mm calcification in the upper pole. Small extrarenal pelvis. No ureteral dilatation or obstruction. Aorta: Mild atherosclerosis abdominal aorta with no aneurysm. No free fluid, intraperitoneal air or significant lymphadenopathy. GI tract: Normal stomach. No small bowel obstruction. Moderate fecal material in the RIGHT colon. The appendix is normal. No colitis or obstruction. Abdominal wall: Negative. No hernia. Pelvis: Urinary bladder is overly distended. No free fluid in the pelvis. Uterus is midline and there is a menstruation cup present. No adnexal mass. Osseous structures: Unremarkable. CT/CT kidney stone [id number] IMPRESSION: 1. Cholelithiasis without evidence for acute cholecystitis or biliary dilatati on. Numerous stones are present in the gallbladder. 2. No renal obstruction or perinephric stranding. 3. Normal appendix. 4. Moderate fecal retention in the RIGHT colon.
[2024-12-12] MEDS: morphine 4 mg/mL SDV 1 mL IVP (09:23)
[2024-12-12] MEDS: ondansetron 2 mg/ML SDV 2 mL 4 MG IVP (09:23)
[2024-12-12 09:36] LABS: Bilirubin Urine Negative (Negative); Blood Urine 2+ (Negative); Glucose Urine UA Negative (Normal); Ketones Urine Negative (Negative); Leukocyte Esterase Urine Negative (Negative); Nitrate Urine Negative (Negative); Protein Urine Negative (Negative); Specific Gravity, Urine 1.008 (1.005-1.030); Urine Appearance Clear (CLEAR); Urine Color Yellow (Yellow); Urobilinogen Urine 0.2 mg/dL (Negative)
[2024-12-12 09:39] LABS: UA Manual Slide Review YES
[2024-12-12 09:50] LABS: Add Urine Microscopic? YES; RBC Urine 0-4 /hpf (0-2); Transitional Epi Cells Urine 0-4 /hpf; WBC Urine 0-4 /hpf (0-5)
[2024-12-12 09:51] LABS: Add Urine Culture? No; Other Casts Urine EPITHELIAL /lpf
--- NOTE | 2024-12-12 11:21 | DCPLANNER ---
Message sent to Gen Surg for follow up- Choleithiasis- 34-year-old female presents emergency room complaining of right upper quadrant abdominal pain. Worsens takes a deep breath. Severe pain with palpation. She has noticed less intense episodes in the past when she eats beef. She denies any acholic stools she has been very nauseous. No dysuria urgency or frequency she is currently having her period. Patient does use marijuana regularly she uses edibles every day as well as vaping. She has not had any vomiting with this.
== END 2024-12-12 11:59 | disposition home or self-care (01) ==
PROVIDERS: Emergency Provider Family Medicine
DX: K80.20 Calculus of gallbladder without cholecystitis without obstruction (principal); K80.50 Calculus of bile duct without cholangitis or cholecystitis without obstruction
CPT/HCPCS: 36415; 74176; 76705; 80053; 81001; 83690; 84703; 85025; 96374; 96375; 99285; J2270; J2405